=== PATIENT | female | born 1955 | race Caucasian/White ===

== ENCOUNTER → 2021-12-05 | Day surgery (SDC) | payer MEDICARE, OTHER ==
[2021-12-05] VITALS (9 sets, daily range): BP systolic 109–152; BP diastolic 57–86
[~2021-12-05] VITALS: Ht 162.6 cm; Wt 74.5 kg
[~2021-12-05] MED LIST: HYDROcodone/APAP 5 MG/325 MG (LORTAB) TAB PO PRN; LIDOCAINE 1% INJ 20 ML VIAL INJ ONE; MIDAZOLAM 2 MG/2 ML (VERSED) VIAL INJ ONE; NS IV 1000 ML 1,000 ML IV SCH; ONDANSETRON 4 MG/2 ML (SDV) Z0FRAN IVP PRN; ONDANSETRON 4 MG/2 ML (SDV) Z0FRAN ONE; fentaNYL INJ 100 MCG/2 ML AMP INJ ONE
[2021-12-05 12:15] LABS: ABSOLUTE RETIC # 78 10e9/uL (24-90); BASOPHILS % (AUTO) 1 % (0-10); EOSINOPHILS # (AUTO) 0.1 10^3/uL (0.0-0.3); EOSINOPHILS % (AUTO) 4 % (0-10); HEMATOCRIT 39 % (35-52); LYMPHOCYTES # (AUTO) 0.6 10^3/uL (1.0-4.0); LYMPHOCYTES % (AUTO) 28 % (12-44); MEAN CORPUSCULAR HEMOGLOBIN 23 pg (25-34); MEAN CORPUSCULAR HGB CONC 31 g/dL (32-36); MEAN CORPUSCULAR VOLUME 74 fL (80-99); MEAN PLATELET VOLUME 9.3 fL (9.0-12.2); MONOCYTES # (AUTO) 0.4 10^3/uL (0.0-1.0); MONOCYTES % (AUTO) 16 % (0-12); NEUTROPHILS # (AUTO) 1.1 10^3/uL (1.8-7.8); NEUTROPHILS % (AUTO) 51 % (42-75); PLATELET COUNT 231 10^3/uL (130-400); RETICULOCYTE % 1.47 % (0.50-2.40); WHITE BLOOD COUNT 2.2 10^3/uL (4.3-11.0)
[2021-12-05 12:37] LABS: BAND NEUTROPHILS 0 %; LYMPHOCYTES % (MANUAL) 29 %; NEUTROPHILS % (MANUAL) 59 %
[2021-12-05 12:38] LABS: BASOPHILS % (MANUAL) 1 %; EOSINOPHILS % (MANUAL) 2 %; MONOCYTES % (MANUAL) 10 %; RBC MORPH NORMAL
--- NOTE | 2021-12-05 13:55 | Pre-Op Note & Conscious Sedat ---
Pre-Operative Progress Note H&P Reviewed The H&P was reviewed, patient examined and no changes noted. Date H&P Reviewed: Dec 05, 2021 Time H&P Reviewed: 13:00 Pre-Op Diagnosis: Neutropenia Conscious Sedation Pre-Proced Time 13:00 ASA Score 2 For ASA 3 and 4: Consider anesthesia and medical clearance. Also, for patients with a history of failed moderate sedation consider anesthesia. Airway Lungs Heart ASA score ASA 1: a normal healthy patient ASA 2: a patient with a mild systemic disease (mid diabetes, controlled hypertension, obesity ASA 3: a patient with a severe systemic disease that limits activity (angina, COPD, prior Myocardial infarction) ASA 4: a patient with an incapacitating disease that is a constant threat to life (CHF, renal failure) ASA 5: a moribund patient not expected to survive 24 hrs. (ruptured aneurysm) ASA 6: a declared brain- patient whose organs are being harvested. For emergent operations, add the letter E after the classification Mallampati Classification Grade 2 Sedation Plan Analgesia, Amnesia, Plan communicated to team members, Discussed options with patient/fam, Discussed risks with patient/fam The patient is an appropriate candidate to undergo the planned procedure, sedation, and anesthesia. The patient immediately re-assessed prior to indication. PRITI LANDAVERDE MD Dec 05, 2021 13:55
--- NOTE | 2021-12-05 14:44 | Diagnostic Imaging Report ---
INDICATION: Neutropenia. Patient was brought to the CT suite and placed on table in the prone position. Axial imaging through the pelvis was performed to evaluate appropriate entry site. Procedure was performed utilizing conscious sedation with radiology nursing and constant patient monitoring. Patient was given a total of 50 mcg of fentanyl intravenously and 1 mg of Versed intravenously. Total procedure time was 5 minutes. Low back was prepped and draped in the usual sterile fashion. A small amount of 1% lidocaine was utilized for local anesthesia. A bone marrow biopsy needle was advanced and placed with its tip along the posterior cortex of the right iliac bone. The needle was advanced through the cortex utilizing the bone marrow drill. Two bone marrow aspirates were then obtained. The bone marrow drill was then used to obtain a bone marrow core sample. The needle was removed, and hemostasis was obtained. The patient tolerated the procedure well and left the department in stable condition. IMPRESSION: Successful CT-guided bone marrow aspiration and core biopsy, utilizing conscious sedation. Dictated by: Dictated on workstation # [id number]
== END ==
LOC: RAD 11:31
PROVIDERS: ATTEND Internal Medicine Hematology & Oncology
DX: D70.4 Cyclic neutropenia (principal)
CPT/HCPCS: 36415; 38222; 77012; 85007; 85027; 85045; 85610; 85730; 88237; 88264; 99156

== ENCOUNTER 2021-12-17 14:49 | Outpatient (RCR) | payer MEDICARE, OTHER | END 2021-12-22 | disposition home or self-care (01) | LOC: ONC 14:49 | PROVIDERS: ATTEND Internal Medicine Hematology & Oncology | DX: D70.4 Cyclic neutropenia (principal) | CPT/HCPCS: 99214; 99215 ==

== ENCOUNTER → 2021-12-31 | Outpatient (CLI) | payer MEDICARE, OTHER ==
[~2021-12-31] MED LIST changes: +CATHETER FLUSH 10 ML SYR IV PRN; +HOLD METFORMIN - RECEIVED CONTRAST 20 ML VIAL IV SCH; -HYDROcodone/APAP 5 MG/325 MG (LORTAB) TAB PO PRN; +IOHEXOL 350 MG/ML 100 ML (OMNIPAQUE 350) VIAL IV ONE; -LIDOCAINE 1% INJ 20 ML VIAL INJ ONE; -MIDAZOLAM 2 MG/2 ML (VERSED) VIAL INJ ONE; +NS 100 ML (IVPB) BAG IV ONE; -NS IV 1000 ML 1,000 ML IV SCH; -ONDANSETRON 4 MG/2 ML (SDV) Z0FRAN IVP PRN; -ONDANSETRON 4 MG/2 ML (SDV) Z0FRAN ONE; -fentaNYL INJ 100 MCG/2 ML AMP INJ ONE
--- NOTE | 2021-12-31 10:55 | Diagnostic Imaging Report ---
PROCEDURE: CT abdomen and pelvis with contrast. TECHNIQUE: Multiple contiguous axial images were obtained through the abdomen and pelvis after administration of intravenous contrast. Auto Exposure Controls were utilized during the CT exam to meet ALARA standards for radiation dose reduction. All CT scans use one or more of the following dose optimizing techniques: automated exposure control, MA and/or KvP adjustment based on patient size and exam type or iterative reconstruction. INDICATION: Neutropenia as well as fatigue and shortness of breath. COMPARISON: No prior studies are available. FINDINGS: There is dependent atelectasis in both lung bases. There is an enhancing lesion in the posterior right lobe of the liver measuring 19 mm. This becomes isodense with the liver on the delayed views and most likely represents a cavernous hemangioma. No other liver lesions are seen. Gallbladder is surgically absent. There is no biliary ductal dilatation. Pancreas and spleen are unremarkable apart from a probable small cyst in the spleen measuring 11 mm. No adrenal mass is identified. Kidneys are unremarkable. Aorta is nonaneurysmal. No central retroperitoneal or mesenteric lymphadenopathy is detected. There is a fat-containing umbilical hernia. The small and large bowel loops are normal in caliber. There is no obstruction. Appendix is unremarkable. Bladder is unremarkable. There is a low-density mass in the right adnexa measuring 4.6 x 3.8 cm. This is likely ovarian. Left ovary is unremarkable. No free fluid or fluid collection is identified. The bony structures are nonacute. There is a sclerotic lesion in the left half of the sacrum, indeterminate. IMPRESSION: 1. Enhancing lesion in the posterior right lobe of the liver, suggestive of a hemangioma. Follow-up to confirm stability would be recommended. 2. Low-density enlargement to the right ovary. Further characterization with dedicated pelvic sonography would be recommended. 3. No evidence of abdominal or pelvic lymphadenopathy. 4. Fat-containing umbilical hernia. Dictated by: Dictated on workstation # [id number]
== END ==
LOC: LAB FS 09:24
PROVIDERS: ATTEND Internal Medicine Hematology & Oncology
DX: D70.9 Neutropenia, unspecified (principal); K76.9 Liver disease, unspecified; K42.9 Umbilical hernia without obstruction or gangrene
CPT/HCPCS: 74177; Q9967

== ENCOUNTER → 2022-01-15 | Outpatient (CLI) | payer MEDICARE, OTHER ==
--- NOTE | 2022-01-15 13:48 | Diagnostic Imaging Report ---
PROCEDURE: Pelvic comp/transvaginal sonogram. TECHNIQUE: Complete transabdominal and transvaginal pelvic ultrasound was performed. In addition, limited pelvic Doppler was performed. INDICATION: Right adnexal mass noted on recent CT. This study is performed for further evaluation. COMPARISON: Correlation is made with the CT study from 12/31/2021. FINDINGS: The uterus measures 9.6 x 4.1 x 8.0 cm. The endometrium is abnormal measuring 2.4 cm in thickness. There is heterogeneity to the endometrium. The myometrium is somewhat heterogeneous but no discrete mass is seen. The right ovary measures 3.4 x 4.9 x 4.3 cm. There are multiple cysts present in the right ovary with the largest approximately 3.1 x 3.5 x 2.4 cm, likely accounting for the CT abnormality. The left ovary was not visualized. No free fluid is detected. IMPRESSION: 1. Abnormally thickened and heterogeneous endometrium. Endometrial neoplasia cannot be entirely excluded. 2. 3.5 cm right ovarian cyst, accounting for the CT abnormality. Dictated by: Dictated on workstation # [id number]
== END ==
LOC: RAD FS 11:45
PROVIDERS: ATTEND Internal Medicine Hematology & Oncology
DX: N83.201 Unspecified ovarian cyst, right side (principal); R93.5 Abnormal findings on diagnostic imaging of other abdominal regions, including retroperitoneum
CPT/HCPCS: 76830; 76856

== ENCOUNTER 2022-01-28 14:38 | Outpatient (RCR) | payer MEDICARE, OTHER | END 2022-02-21 | disposition home or self-care (01) | LOC: ONC 14:38 | PROVIDERS: ATTEND Internal Medicine Hematology & Oncology | DX: D70.9 Neutropenia, unspecified (principal) | CPT/HCPCS: 99213 ==

== ENCOUNTER 2022-04-29 10:17 | Outpatient (RCR) | payer MEDICARE, OTHER | END 2022-05-24 | disposition home or self-care (01) | LOC: ONC 10:17 | PROVIDERS: ATTEND Internal Medicine Hematology & Oncology | DX: D70.9 Neutropenia, unspecified (principal); R79.9 Abnormal finding of blood chemistry, unspecified | CPT/HCPCS: 99213 ==

== ENCOUNTER 2022-10-27 15:09 | Outpatient (RCR) | payer MEDICARE, OTHER | END 2022-11-24 | disposition home or self-care (01) | LOC: ONC 15:09 | PROVIDERS: ATTEND Internal Medicine Hematology & Oncology | DX: D70.9 Neutropenia, unspecified (principal); R79.9 Abnormal finding of blood chemistry, unspecified | CPT/HCPCS: 99213 ==

== ENCOUNTER → 2022-12-04 | Outpatient (CLI) | payer MEDICARE, OTHER ==
[~2022-12-04] VITALS: Ht 162.6 cm; Wt 75.0 kg
[~2022-12-04] MED LIST changes: -CATHETER FLUSH 10 ML SYR IV PRN; -HOLD METFORMIN - RECEIVED CONTRAST 20 ML VIAL IV SCH; -IOHEXOL 350 MG/ML 100 ML (OMNIPAQUE 350) VIAL IV ONE; +LIDOCAINE 1% INJ 30 ML (XYLOCAINE) VIAL INJ ONE; -NS 100 ML (IVPB) BAG IV ONE
--- NOTE | 2022-12-04 14:51 | Diagnostic Imaging Report ---
INDICATION: Right thyroid nodule. FINDINGS: Patient was brought to the procedure room, placed on table in the supine position. Ultrasound imaging of the right neck was performed to evaluate appropriate entry site. Right neck was then prepped and draped in the usual sterile fashion. Small amount of 1% lidocaine was utilized for local anesthesia. A total of four passes were made into the dominant solid nodule in the right lobe of the thyroid utilizing 25-gauge needles and fine-needle aspiration technique. Hemostasis was obtained. Patient tolerated the procedure well and left the department in stable condition. IMPRESSION: Successful ultrasound-guided fine-needle aspiration of the dominant solid nodule in the right lobe of the thyroid. Pathology results are currently pending. Dictated by: Dictated on workstation # [id number]
== END ==
LOC: RAD 12:28
PROVIDERS: ATTEND Family Medicine
DX: E04.1 Nontoxic single thyroid nodule (principal)

== ENCOUNTER → 2023-05-06 | Outpatient (CLI) | payer MEDICARE, OTHER ==
--- NOTE | 2023-05-06 13:25 | Diagnostic Imaging Report ---
PROCEDURE: US Thyroid. TECHNIQUE: Multiple real-time grayscale images were obtained of the thyroid in various projections. INDICATION: Follow-up right-sided thyroid nodule. Biopsy performed on the thyroid nodule on 12/04/2022. COMPARISON: 12/04/2022. FINDINGS: Both thyroid lobes demonstrate a heterogeneous background echotexture. Color flow Doppler demonstrates normal and symmetric vascularity bilaterally. The right lobe measures 5.6 cm in length, 1.8 cm AP, and 2.2 cm transverse. The left lobe measures 3.9 cm in length, 1.7 cm AP, and 1.5 cm transverse. The isthmus measures 0.4 cm. Multiple nodules are seen in the thyroid. The dominant nodule in the inferior pole of the right lobe of the thyroid measures 2.4 x 2.1 x 2.4 cm with mixed cystic and solid composition. The largest nodule in the left lobe of the thyroid measures 1.2 x 0.5 x 1.2 cm and also has a mixed solid and cystic composition. IMPRESSION: 1. Multinodular goiter. Recommend correlation with the pathology results from the prior biopsy and continued follow-up as indicated. Dictated by: Dictated on workstation # [id number]
== END ==
LOC: RAD 09:25
PROVIDERS: ATTEND Otolaryngology Otolaryngology/Facial Plastic Surgery
DX: E04.2 Nontoxic multinodular goiter (principal)
CPT/HCPCS: 76536